=== PATIENT | female | born 1945 | race Caucasian/White ===

== ENCOUNTER 2018-11-27 12:02 | Outpatient (REF) | payer MEDICARE, OTHER, SELFPAY ==
[2018-11-27 14:02] LABS: ALT 21 U/L (12-78); AST 19 U/L (15-37); Albumin 3.7 g/dL (3.4-5.0); Alkaline Phosphatase 71 U/L (46-116); Anion Gap 11.2 mmol/L (3-11); BUN 22 mg/dL (7-18); Bilirubin, Total 0.7 mg/dL (0.2-1.0); CO2 25.8 mmol/L (21.0-32.0); CREATININE 0.86 mg/dL (0.55-1.02); Calculated LDL 137 mg/dL; Chloride 101 mmol/L (98-107); Cholesterol 218 mg/dL (50-200); Glucose 89 mg/dL (70-100); HDL Cholesterol 68 mg/dL (40-60); Potassium 3.2 mmol/L (3.5-5.1); Sodium 138 mmol/L (136-145); TSH (W/Ref FT4) 2.67 uIU/mL (0.36-3.74); Total Protein 6.6 g/dL (6.4-8.2); Triglyceride 65 mg/dL (30-150)
== END 2018-11-27 12:22 ==
LOC: NCHCN 12:02
PROVIDERS: PCP Nurse Practitioner; Visit Provider Nurse Practitioner
DX: E03.9 Hypothyroidism, unspecified (principal); I10 Essential (primary) hypertension; E78.5 Hyperlipidemia, unspecified
CPT/HCPCS: 80053; 80061; 83721; 84443

== ENCOUNTER 2020-10-18 09:14 | Outpatient (REF) | payer MEDICARE, OTHER, SELFPAY ==
[2020-10-18 19:54] LABS: ALT 19 U/L (14-59); AST 18 U/L (15-37); Albumin 3.9 g/dL (3.4-5.0); Alkaline Phosphatase 70 U/L (46-116); Anion Gap 11.7 mmol/L (3-11); BUN 15 mg/dL (7-18); Bilirubin, Total 0.7 mg/dL (0.2-1.0); CO2 27.3 mmol/L (21.0-32.0); CREATININE 0.9 mg/dL (0.55-1.02); Calcium 9.1 mg/dL (8.5-10.1); Calculated LDL 138 mg/dL (<100); Chloride 101 mmol/L (98-107); Cholesterol 218 mg/dL (<200); Glucose 105 mg/dL (74-106); HDL Cholesterol 67 mg/dL (40-60); Potassium 3.1 mmol/L (3.5-5.1); Sodium 140 mmol/L (136-145); TSH (W/Ref FT4) 2.94 uIU/mL (0.36-3.74); Total Protein 7.2 g/dL (6.4-8.2); Triglyceride 66 mg/dL (<150)
== END 2020-10-18 09:15 | disposition home or self-care (01) ==
LOC: NCHCN 09:14
PROVIDERS: PCP Nurse Practitioner; Visit Provider Nurse Practitioner
DX: E03.9 Hypothyroidism, unspecified (principal); E78.5 Hyperlipidemia, unspecified; I10 Essential (primary) hypertension; F41.8 Other specified anxiety disorders
CPT/HCPCS: 80053; 80061; 84443

== ENCOUNTER 2020-11-08 02:19 | Outpatient (CLI) | payer MEDICARE, OTHER, SELFPAY ==
--- NOTE | 2020-11-08 09:13 | DI.RAD_ITS ---
Exam(s) XR KNEE RT 3V AP,LAT,VASHTI XR KNEE LT 3V AP,LAT,VASHTI EXAM: XR KNEE RT 3V AP,LAT,VASHTI CLINICAL HISTORY: OA,M19.90,BAKERS CYST,M71.20. TECHNIQUE: 2D digital imaging was performed. COMPARISON: CR XR KNEE LT 3V AP,LAT,VASHTI from 11/08/2020 FINDINGS: BONES: No acute fracture is present. No bony destructive lesion is seen. There are severe degenerativ e changes of the medial femoral tibial joint spaces bilaterally , with a [id number]-rz-[id number] appearance. Th ere is prominent spurring from the medial femoral condyle and medial tibial plateau as well as sclero sis and varus angulation. Milder spurring is seen at the lateral femoral tibial joint and patellofem oral joint. JOINTS: No joint effusion is seen. SOFT TISSUE: Normal. IMPRESSION: Severe degenerative changes of the medial femoral tibial joint spaces of both knees. DATA REPOSITORY: RADIATION DOSE DELIVERED:
--- NOTE | 2020-11-08 09:14 | DI.RAD_ITS ---
Exam(s) XR KNEE RT 3V AP,LAT,VASHTI XR KNEE LT 3V AP,LAT,VASHTI EXAM: XR KNEE RT 3V AP,LAT,VASHTI CLINICAL HISTORY: OA,M19.90,BAKERS CYST,M71.20. TECHNIQUE: 2D digital imaging was performed. COMPARISON: CR XR KNEE LT 3V AP,LAT,VASHTI from 11/08/2020 FINDINGS: BONES: No acute fracture is present. No bony destructive lesion is seen. There are severe degenerativ e changes of the medial femoral tibial joint spaces bilaterally , with a kvsd-[id number] appearance. Th ere is prominent spurring from the medial femoral condyle and medial tibial plateau as well as sclero sis and varus angulation. Milder spurring is seen at the lateral femoral tibial joint and patellofem oral joint. JOINTS: No joint effusion is seen. SOFT TISSUE: Normal. IMPRESSION: Severe degenerative changes of the medial femoral tibial joint spaces of both knees. DATA REPOSITORY: RADIATION DOSE DELIVERED:
== END 2020-11-08 02:39 ==
PROVIDERS: PCP Nurse Practitioner; Visit Provider Nurse Practitioner
DX: M17.0 Bilateral primary osteoarthritis of knee (principal); M71.22 Synovial cyst of popliteal space [Baker], left knee; M71.21 Synovial cyst of popliteal space [Baker], right knee
CPT/HCPCS: 73562

== ENCOUNTER → 2020-12-02 09:43 | Outpatient (BNVA) | payer MEDICARE, OTHER, SELFPAY | PROVIDERS: PCP Nurse Practitioner; Referring Provider Nurse Practitioner; Visit Provider Student in an Organized Health Care Education/Training Program | DX: M17.12 Unilateral primary osteoarthritis, left knee (principal); M17.11 Unilateral primary osteoarthritis, right knee | CPT/HCPCS: 20610; J1040 ==

== ENCOUNTER 2021-01-19 00:23 | Outpatient (CLI) | payer MEDICARE, OTHER, SELFPAY ==
--- NOTE | 2021-01-19 | DI.DEXA_ITS ---
Exam(s) XR DEXA BONE DENSITY W/WO RYLEE EXAM: XR DEXA BONE DENSITY W/WO RYLEE CLINICAL HISTORY: DISORDER OF BONE DENSITY,M85.88 TECHNIQUE: Routine DEXA evaluation of the lumbar spine, hip, or forearm. COMPARISON: No exams were available for comparison FINDINGS: Performed on a Hologic unit. Lateral image: No compression fracture evident. Lumbar Spine total T-score: -1.5 Hip total T-score:-2.2 Independent reading at the level of the femoral neck yields at T-score of -2.5. Forearm total T-score: -1.3 IMPRESSION: Bone mineral density measures in the osteoporosis range. Fracture risk is high. Note: Any spine fracture indicates 5x risk for subsequent spine fracture and 2x risk for subsequent h ip fracture. World Health Organization criteria for BMD interpretation classify patients: Normal...... T- Score at or above -1.0 Osteopenic... T- Score between -1.0 and -2.5 Osteoporosis... T-Score at or below -2.5
--- NOTE | 2021-01-19 | DI.MAMMO_ITS ---
Exam(s) MAMMO SCREENING EXAM: MAMMO SCREENING CLINICAL HISTORY: SCREENING, Z12.39. TECHNIQUE: Bilateral full field digital CC and MLO mammographic images were obtained with 3D tomosyn thesis and utilizing computer aided detection (CAD). COMPARISON: Prior mammograms dating back to 2010, the most recent being July 2017. FINDINGS: Asymmetric densities in the right breast are unchanged from prior studies. Microcalcification group in the right breast is also unchanged from 2018. There are no new spiculated masses nor malignant appearing microcalcification groups. There is no significant architectural distortion nor skin thickening-retraction. IMPRESSION: Stable benign findings. No radiographic evidence of malignancy. BI-RADS Category 2 - Benign Findings Breast Density - Category B - Scattered areas of fibroglandular density Breast density Category C or D implies that the patient has dense breast tissue. Dense breast tissue can make it harder to find cancer on a mammogram. Dense breast tissue is also associated with an incr eased risk of breast cancer. This information about the result of the mammogram report was provided to the patient to raise their awareness. Use this report when you speak with the patient about their risks for breast cancer, which includes their family history. At that time, you may recommend additional screening tests (Ultrasoun d or MRI) as these tests may add significant information. A negative radiographic report should not delay biopsy if a dominant or clinically suspicious mass is present. Up to ten percent of cancers are not identified on mammography. A negative report may reinforce clinical impression. Adenosis and dense breasts may obscure an underlying neoplasm. False positive reports average 6 to 10%. Patient will receive a letter notifying them of these results.
== END 2021-01-19 00:43 ==
PROVIDERS: PCP Nurse Practitioner; Visit Provider Nurse Practitioner
DX: M85.89 Other specified disorders of bone density and structure, multiple sites (principal); Z13.820 Encounter for screening for osteoporosis; Z12.31 Encounter for screening mammogram for malignant neoplasm of breast
CPT/HCPCS: 77063; 77067; 77080

== ENCOUNTER 2021-08-14 13:23 | Outpatient (CLI) | payer MEDICARE, OTHER, SELFPAY ==
--- NOTE | 2021-08-14 11:36 | DI.RAD_ITS ---
Exam(s) XR STANDING ALIGNMENT EXAM: XR STANDING ALIGNMENT CLINICAL HISTORY: TKA planning. TECHNIQUE: 2D digital imaging was performed. Standing AP views were performed from the pelvis throu gh the ankles. COMPARISON: No exams were available for comparison FINDINGS: BONES: No acute fracture is present. No bony destructive lesion is seen. Minimal leg length discrep zion with the left femoral head projecting a few millimeters superior to the right. JOINTS: Knees: Severe degenerative changes of the medial femoral tibial joint spaces of both knees wi th severe joint space narrowing and prominent periarticular spurring. Mild varus angulation. The ankle and hip joints are unremarkable. SOFT TISSUE: Normal. IMPRESSION: Severe degenerative changes of the medial femoral tibial joint spaces of both knees. Minimal leg cynthia gth discrepancy. DATA REPOSITORY: RADIATION DOSE DELIVERED:
== END 2021-08-14 13:24 | disposition home or self-care (01) ==
LOC: DIORS 13:23
PROVIDERS: PCP Nurse Practitioner; Referring Provider Nurse Practitioner; Visit Provider Student in an Organized Health Care Education/Training Program
DX: M17.12 Unilateral primary osteoarthritis, left knee (principal); M17.11 Unilateral primary osteoarthritis, right knee
CPT/HCPCS: 77073

== ENCOUNTER 2021-08-28 01:58 | Outpatient (CLI) | payer MEDICARE, OTHER, SELFPAY | END 2021-08-28 01:59 | disposition home or self-care (01) | LOC: LBO 01:58 | PROVIDERS: PCP Nurse Practitioner; Visit Provider Student in an Organized Health Care Education/Training Program ==

== ENCOUNTER 2021-08-28 02:25 | Outpatient (CLI) | payer MEDICARE, OTHER, SELFPAY ==
[2021-08-28 13:05] LABS: HCT 44.1 % (36.0-46.0); HGB 14.5 g/dL (11.2-15.7); MCH 30.3 pg (27.0-33.0); MCHC 32.9 % (32.0-36.0); MCV 92 fL (80-95); MPV 11.8 fL (8.0-11.0); Platelet Count 202 10^3/uL (130-400); RBC 4.78 10^6/uL (3.93-5.22); RDW 13.7 % (11.7-14.6); RDW-SD 46.8 fL; WBC 8.34 10^3/uL (4.4-10.8)
[2021-08-28 13:39] LABS: Anion Gap 7.9 mmol/L (3-11); BUN 25 mg/dL (7-18); CO2 31.1 mmol/L (21.0-32.0); CREATININE 1.1 mg/dL (0.55-1.02); Calcium 9.5 mg/dL (8.5-10.1); Chloride 102 mmol/L (98-107); Estimated GFR 48.42 (mL/min/1.73m2); Glucose 97 mg/dL (74-106); Potassium 3.4 mmol/L (3.5-5.1); Sodium 141 mmol/L (136-145)
[2021-08-28 14:27] LABS: Source Nasal/Nares
[2021-08-28 16:40] LABS: COVID-19 PCR Negative (Negative)
== END 2021-08-28 02:26 | disposition home or self-care (01) ==
LOC: LBO 02:25
PROVIDERS: PCP Nurse Practitioner; Visit Provider Student in an Organized Health Care Education/Training Program
DX: M25.562 Pain in left knee (principal); M17.12 Unilateral primary osteoarthritis, left knee; Z20.822 Contact with and (suspected) exposure to COVID-19; Z01.818 Encounter for other preprocedural examination; Z01.812 Encounter for preprocedural laboratory examination
CPT/HCPCS: 36415; 80048; 85027; 87635; U0005

== ENCOUNTER 2021-08-30 05:55 | Day surgery (SDC) | payer MEDICARE, OTHER, SELFPAY ==
[2021-08-30] VITALS (10 sets, daily range): BP systolic 81–115; BP diastolic 30–71; PULSE 60–75; RESP 13–19; TEMP 36.2–36.7; O2SAT 94–98; BMI 30.8
[2021-08-30] MEDS: Acetaminophen 500 MG TAB 1000 MG PO (06:32)
[2021-08-30] MEDS: Gabapentin 300 MG CAP PO (06:33)
[2021-08-30] MEDS: Celecoxib 200 MG CAP 400 MG PO (06:33)
[2021-08-30] MEDS: Lactated Ringers 1,000 ML 80 ML IV (06:40)
--- NOTE | 2021-08-30 06:47 | W.ANESPRE ---
General Info Date of Service Date Performed: 08/30/21 Height: 5 ft 3 in Weight: 78.9 kg Body Mass Index (BMI): 30.8 Surgical Procedure: Operation Date: 08/30/21 07:40 Proposed Procedure Side Surgeon p Knee Total Arthroplasty Left Brendan Yin MD s Knee Manipulation of Knee Right Brendan Yin MD Meds Allergies and Home Medications Allergies Allergy/AdvReac Type Severity Reaction Status Date / Time No Known Allergies Allergy Verified 08/30/21 06:05 Home Medication Medication Instructions Recorded alprazolam 0.5 mg disintegrating 0.5 mg PO HS 09/17/16 tablet citalopram 40 mg tablet (Celexa) 40 mg PO DAILY tab-cap 09/17/16 levothyroxine 25 mcg tablet 50 mcg PO DAILY tab-cap 09/17/16 triamterene 37.5 1 tab-cap PO DAILY tab-cap 09/17/16 mg-hydrochlorothiazide 25 mg capsule rosuvastatin 20 mg tablet 20 mg PO DAILY 08/28/21 naproxen sodium 220 mg capsule 660 mg PO 08/30/21 (Aleve) Current Visit Medications: Current Medications Generic Name Dose Route Start Last Admin Trade Name Freq PRN Reason Stop Dose Admin Acetaminophen 1,000 mg 08/30/21 06:00 08/30/21 06:32 Acetaminophen 500 Mg Tab PO 1,000 mg PREOP THEODORE Administration Celecoxib 400 mg 08/30/21 06:00 08/30/21 06:33 Celecoxib 200 Mg Cap PO 400 mg PREOP THEODORE Administration Gabapentin 300 mg 08/30/21 06:00 08/30/21 06:33 Gabapentin 300 Mg Cap PO 300 mg PREOP THEODORE Administration Tranexamic Acid 1,000 mg/ 60 mls @ 360 mls/hr 08/30/21 06:00 Sodium Chloride IVPB 08/30/21 23:59 PREOP THEODORE Tranexamic Acid 1,000 mg/ 60 mls @ 360 mls/hr 08/30/21 06:00 Sodium Chloride IVPB 08/30/21 23:59 DIRECTED THEODORE Ringer's Solution 1,000 mls @ 80 mls/hr 08/30/21 06:00 IV 09/28/21 23:59 INFUSION THEODORE Cefazolin Sodium/Dextrose 2 gm in 50 mls @ 100 mls/hr 08/30/21 06:00 Ancef Duplex IVPB 09/28/21 23:59 PREOP THEODORE IV Miscellaneous Supplies 1 each 08/30/21 06:00 Iv Access IV 09/28/21 23:59 DIRECTED THEODORE Sodium Chloride 0 ml 08/30/21 06:00 Normal Saline Flush 10 Ml Syr IV 09/28/21 23:59 PRN PRN Sodium Chloride 0 ml 08/30/21 06:00 Normal Saline 10 Ml Vial IJ 09/28/21 23:59 DIRECTED PRN Sterile Water 0 ml 08/30/21 06:00 Water,Injection,Sterile 10 Ml Vial IJ 09/28/21 23:59 DIRECTED PRN PFSH Active Problems Active Problems: Problem Status Onset Code Osteoarthritis of left knee M17.12 Osteoarthritis of right knee M17.11 Medical History Medical History Depression with anxiety HTN (hypertension) Hypothyroidism Surgical History Surgical History Arthroplasty of knee R knee scope reported by patient Colonoscopy - MAC (10/01/16) Tobacco Smoking/Tobacco Use Status: Former Tobacco Use Alcohol Alcohol Intake: current Alcohol intake frequency: a few times a week Alcohol type: wine Substance Use Substance use: Never Substance use type: does not use Details: alcohol: t-5 Vital Signs and Lab Results Vital Signs Most Recent Vital Signs in EMR: Most Recent Vital Signs Temp Pulse Resp BP Pulse Ox 36.5 C 75 16 115/71 98 08/30/21 06:12 08/30/21 06:12 08/30/21 06:12 08/30/21 06:12 08/30/21 06:12 Lab Results Blood Type / Crossmatch: No Data to Display Complete Blood Count: White Blood Count 8.34 10^3/uL (4.4-10.8) 08/28/21 12:48 08/28/21 Red Blood Count 4.78 10^6/uL (3.93-5.22) 08/28/21 12:48 08/28/21 Hemoglobin 14.5 g/dL (11.2-15.7) 08/28/21 12:48 08/28/21 Hematocrit 44.1 % (36.0-46.0) 08/28/21 12:48 08/28/21 Platelet Count 202 10^3/uL (130-400) 08/28/21 12:48 08/28/21 Complete Metabolic Panel: Sodium Level 141 mmol/L (136-145) 08/28/21 12:48 08/28/21 Potassium Level 3.4 mmol/L (3.5-5.1) L 08/28/21 12:48 08/28/21 Chloride Level 102 mmol/L (98-107) 08/28/21 12:48 08/28/21 Carbon Dioxide Level 31.1 mmol/L (21.0-32.0) 08/28/21 12:48 08/28/21 Blood Urea Nitrogen 25 mg/dL (7-18) H 08/28/21 12:48 08/28/21 Creatinine 1.1 mg/dL (0.55-1.02) H 08/28/21 12:48 08/28/21 Estimated GFR/1.73 m2 48.42 (mL/min/1.73m2) 08/28/21 12:48 08/28/21 Calcium Level 9.5 mg/dL (8.5-10.1) 08/28/21 12:48 08/28/21 Glucose Level 97 mg/dL (74-106) 08/28/21 12:48 08/28/21 Liver Function Panel: No Data to Display Coagulation Panel: No Data to Display Cardiac Panel: No Data to Display Arterial Blood Gas: No Data to Display Venous Blood Gas: No Data to Display Pancreas Panel: No Data to Display Thyroid Panel: No Data to Display Infectious Disease: Coronavirus (COVID-19)(PCR) Negative (Negative) 08/28/21 12:59 08/28/21 Coronavirus 2019 Source Nasal/Nares 08/28/21 12:59 08/28/21 Blood Cultures: No Data to Display Toxicology Panel: No Data to Display Anesthesia Assessment and Plan Anesthesia History Personal History: No History of Anesthesia Complications Family History: No Family History of Anesthesia Complications Exercise Tolerance Exercise Tolerance: Metabolic Equivalents>4 Pertinent Negatives Pertinent Negatives: No Symptoms of GERD, No Major Cardiovascular Symptoms or Complaints and No Major Pulmonary Symptoms or Complaints Cardiac & Pulmonary Exam Cardiac Exam: Normal S1/S2 Heart Sounds Pulmonary Exam: Clear Bilateral Breath Sounds Implantable Cardiac Device Does patient have a Pacemaker or an ICD?: No Airway Exam Known Difficult Airway: No Mallampati Class: 2 Mouth Opening: Narrow (< 3cm) Thyromental Distance: Greater than 3 cm Neck Range of Motion: Full ROM Neck Circumference: Normal Teeth Condition: Normal Dentition ASA Classification ASA Score: ASA 2 Emergency Case?: No NPO Status NPO Status: NPO Clears >2 hours, Solids >8 hours Anesthesia Plan Resuscitation Status: Full Code Anesthesia Technique: Spinal Anesthesia Airway Planned: Natural Airway Pain Management: Surgeon and patient request nerve block Monitors Used: Standard Monitors
--- NOTE | 2021-08-30 07:13 | DSE_ITS ---
DS: Diagnosis Discharge Diagnosis (1) Osteoarthritis of right knee: Status: Chronic (2) Osteoarthritis of left knee: Status: Chronic Discharge Plan Disposition Patient Disposition: HOME Condition: Good Discharge Details Reason For Visit: Left knee DJD; Right knee DJD Attending Provider: Brendan Yin Primary Care Provider: Chary Peñaloza Home Meds and New Rx's Prescriptions: New celecoxib [Celebrex] 200 mg capsule 200 mg PO BID Qty: 30 0RF aspirin 81 mg tablet,delayed release (DR/EC) 81 mg PO BID 30 Days Qty: 60 0RF acetaminophen 500 mg tablet 500 mg PO Q6H PRN (Reason: pain) Qty: 60 2RF pantoprazole 40 mg tablet,delayed release (DR/EC) 40 mg PO DAILY 30 Days Qty: 30 0RF docusate sodium [Colace] 100 mg capsule 100 mg PO BID Qty: 30 0RF gabapentin 300 mg capsule 300 mg PO QHS Qty: 14 0RF Rx Instructions: Take one tablet at bedtime oxycodone 5 mg tablet 5 mg PO Q4H PRN (Reason: severe post-operative pain) Qty: 18 0RF Rx Instructions: Take one tablet up to every 4 hours as needed for severe pain Continued alprazolam 0.5 MG tablet,disintegrating 0.5 mg PO HS PRN0RF citalopram [Celexa] 40 MG tablet 40 mg PO DAILY 0RF triamterene-hydrochlorothiazid 1 EACH capsule 1 tab-cap PO DAILY 0RF levothyroxine 25 MCG tablet 50 mcg PO DAILY 0RF rosuvastatin 20 mg tablet 20 mg PO DAILY 0RF Discontinued naproxen sodium [Aleve] 220 mg Capsule 660 mg PO 0RF Discharge Instructions Additional Instructions: Total Knee Discharge Instructions Activity: The most important activity is to walk. You should try to take short walks a few times a day. It is important that when resting you work on keeping the knee straight. Avoid putting a pillow behind the knee as this will encourage flexion. Work on range of motion exercises as provided by Physical Therapy. If you have the [employer] bike coming, this will be your primary tool for exer cise after the knee replacement. You should use it and follow the directions for the knee. Utilize the other exercises sparingly based on your symptoms. - Start outpatient physical therapy within 2 weeks. - You should wear the JOE hose on both legs for 2 weeks. You may remove these at night. You may also use any compression sock in place of the JOE hose. - Utilize [employer] to review exercises, see videos on exercises and obtain basic information pertaining to your surgery and your recovery. - Following your right knee injection you may have increased discomfort for 2-3 days. Apply ice and may remove band aid after a day. Dressing: Remove the Ulises wrap by 2 days after your surgery and put on the JOE stocking given to you from the hospital. Keep the surgical dressing (underneath the ULISES wrap) in place for at least one week. After the first week it may be removed and replaced with light gauze and tape or nothing. The wound and dressing may get wet after 3 days but avoid soaking the dressing or otherwise it will need to be changed. Many people prefer covering the dressing with cling wrap (saran wrap) to minimize it from getting soaked. If it gets wet, just pat dry. If it starts to peel off then it will need to be changed. Medications: - You should take Tylenol and anti-inflammatory Celebrex as your primary pain control medications. If the Celebrex is too expensive or not covered, please call the office for another alternative (Advil/Ibuprofen or Naproxen/Aleve) - You have been prescribed a stronger pain medication Oxycodone for breakthrough pain, take as needed as prescribed. - You have also been prescribed a stomach acid reduction agent Pantoprozole to help reduce stomach acid and reflux. - You have been prescribed Gabapentin to take at night for restlessness and nerve pain. - You will be taking Aspirin 81mg twice a day for DVT prevention unless instructed otherwise. - If you have constipation you should take Colace (which has been prescribed) or Miralax (which is available for purchase [id number]). It takes most people 3-4 days to have a bowel movement. Follow-up: 2 weeks If you have any acute concerns or questions, please do not hesitate to contact the office at [phone]. You may contact Dr. Yin with any questions after hours through the hospital at [phone] or on his cell phone at [phone]. Referrals: Brendan Yin MD [ [facility] STAFF PHYSICIAN] - Equipment/Supplies: Walker Activity:: Elevate Remove Dressings/Wound Care:: Do Not Remove Shower/Bathe:: Cover Diet:: As Tolerated Discharge Orders Discharge Orders: Discharge Order (Routine); Ordered 08/30/21 Ordered By: Brendan Yin DS: Summary Time Spent with Patient providing and/or coordinating discharge services: Less than 30 minutes Status at Discharge Functional status at discharge: uses cane/walker Overall status at discharge: patient is progressing back to baseline Mental Status: mental status grossly normal Speech and Movement: speech and movement normal Mood: congruent mood Affect: normal affect Exam Psych Mental Status: mental status grossly normal Speech and Movement: speech and movement normal Mood: congruent mood Affect: normal affect DS: Data Vitals/I&O Vitals and I&O: Vital Signs Temperature 97.7 F 08/30/21 06:12 Pulse 75 08/30/21 06:12 Pulse Rhythm Regular 08/30/21 06:12 Respiratory Rate 16 08/30/21 06:12 Respiratory Depth Normal 08/30/21 06:12 Blood Pressure 115/71 08/30/21 06:12 Pulse Oximetry 98 08/30/21 06:12 Oxygen Delivery Method Room Air 08/30/21 06:12 Oxygen Flow Rate 0 08/30/21 06:12 Pain Level 4 08/30/21 06:12 Intake & Output 08/29/21 08/29/21 08/30/21 11:59 23:59 11:59 Weight 176 lb 7.01 oz 173 lb 15.115 oz PFSH All Active Problems Osteoarthritis of left knee (Chronic) injection 12/02/2020 Osteoarthritis of right knee (Chronic) Injection 12/02/2020 Medical History Depression with anxiety HTN (hypertension) Hypothyroidism Surgical History Arthroplasty of knee R knee scope reported by patient Colonoscopy - MAC (10/01/16) Family History Maternal Aunt Colon cancer Maternal Aunt Colon cancer Social History Smoking/Tobacco Use Status: Former Tobacco Use Quit Date: 04/29/96 Smoking risk assessment performed?: Yes Alcohol Intake: current Alcohol Intake frequency: a few times a week Alcohol type: wine Drug use: Never Substance use type: does not use Details: alcohol: t-5 Do you feel safe at home: Yes Do you feel safe in your relationship?: Yes
[2021-08-30] MEDS: ceFAZolin 2 GM/50 ML BAG IVPB (07:30)
[2021-08-30] MEDS: methylPREDNISolone ACETATE 80 MG/ML VIAL (07:44)
[2021-08-30] MEDS: Bupivacaine 0.25% Pres-Free 30 ML VIAL (07:44)
--- NOTE | 2021-08-30 08:45 | W.ANESNERVE ---
Nerve Block Single Injection Procedure Date and Time Date Performed: 08/30/21 Procedure Start: 07:15 Location Where Procedure Performed Procedure Location: Day Surgery Unit Reason Performed: Postoperative Analgesia Requesting Provider: Brendan Yin Timeout Performed Timeout Performed: Yes Monitoring Used ECG, Blood Pressure and SpO2 Sterility Sterility: Hand Hygiene, Surgical Cap, Surgical Mask, Sterile Gloves, Sterile Drape/Sheet and Chlorhexidine Sedation Given During Procedure Sedation Given (Indicate Dose Given): No Sedation given Patient Mental Status Patient Mental Status: Awake Nerve Block 1st Nerve Block: Laterality: Left Block Type: Adductor Canal Needle / Catheter Used: 100mm SonoPlex II Local Anesthetic Bolus (Indicate Dose Given): Lidocaine used for local infiltration of skin, Injected in 3-5ml increments after negative blood aspiration and Bupivacaine 0.25% Dose:: 20 mL Additives (Indicate Dose Given): None Ultrasound: Sterile probe cover and gel used Ultrasound Image Saved?: Yes Nerve Stimulator: Not Used Paresthesia: None Procedure Tolerated: No Complications and Patient tolerated well Procedure Outcome: Successful Performed By: Ivette Samaniego Supervised By: William Zayas
--- NOTE | 2021-08-30 09:42 | ROE_ITS ---
Date of service: 08/30/21 Time of Service: 09:30 Operative Note Operative Note DATE OF PROCEDURE: 08/30/21 PRE-OP DIAGNOSIS: Bilateral Knee Osteoarthritis POST-OP DIAGNOSIS: same PROCEDURE: Left Total Knee Replacement and Right Knee Injection SURGEON: Brendan Yin BOILERMAKER MECHANIC: Marce Duff ANESTHESIA TYPE: Spinal Refer to Anesthesia Record ESTIMATED BLOOD LOSS: 100 PATHOLOGY: none sent TOURNIQUET TIME: 27 COMPLICATIONS: None Patient was transported to: PACU Patient's condition: stable Implants: 1. Depuy Attune Cruciate Retaining Femoral Component, Size 6 2. Depuy Attune Rotating Platform Tibial Component, Size 5 3. Depuy Attune 6x8mm CR,RP Poly 4. Depuy Attune Patellar Component, Size 38 Indications: I have seen aPyal in clinic for symptoms of knee arthritis, confirmed with radiographic findings. She has exhausted nonoperative methods and was having significant limitations in daily function and desired better function and less pain. I discussed the technical details of a knee replacement. I explained the risks of the procedure to include, but not limited to, bleeding, infection, pain, stiffness, fracture, damage to nerves and vessels, damage to muscles and tendons, loosening, need for repeat procedure, blood clot and cardiopulmonary demise. Despite these risks, Payal elected to proceed. Findings: There was significant signs of arthritis throughout the knee involving all 3 compartments but with large osteophytes medially. Procedure Description: Payal was greeted in the preoperative holding area where the correct side was identified and marked. The consent was reviewed with the patient and signed. The history and physical was updated. All questions were answered. Preoperative mediacations were administered: Acetaminophen 1000mg, Celebrex 400mg, and Gabapentin 300mg. An adductor canal block was then administered by the anesthesia team in the PACU. Payal was taken back to the operating room. A spinal anesthestic was then administered. The patient was placed into the supine position on the operating room table. A nonsterile tourniquet was placed high onto the leg but only used for cementing. Posts were placed for positioning during the procedure. All bony prominences were well padded. Prophylactic antibiotics in the form of Cefazolin were administered. 1g of Tranxemic Acid was given intravenously within 30 minutes of incision. A timeout to confirm correct identity, side and site, procedure, allergies, anesthesia, and medical concerns was performed. The right knee was addressed first by identifying the injection location superolaterally. This was prepped with alcohol. Then the knee was entered and 0.25% bupivacaine (5cc) along with 80mg of Depo-Medrol was injected without difficulty. This was dressed with a bandaid. The left leg was then prepped with Chloraprep and draped in a standard fashion with impervious stockinette and extremity drape. A second prep with Chloraprep was performed prior to placing Ioband. With the knee in some flexion, a midline incision was made overlying the knee. Full thickness skin flaps were raised once the extensor mechanism was encountered. These were raised medially and laterally. Any bleeding was controlled with electrocautery. Once the extensor mechanism was fully exposed, a medial parapatellar arthrotomy was performed in a flexed position. All bleeding from the arthrotomy and the geniculate arteries was coagulated. A medial subperiosteal peel was performed with electrocautery to the midcoronal plane. Due to the significant varus deformity the entire medial tibial plateau was exposed. The fat pad was removed while keeping the patellar tendon protected. The anterior distal femur synovium was removed for later visualization. The ACL and PCL were resected and the anterior horn of the lateral meniscus was transected. The knee was then flexed with the patella everted. Large osteophytes from the tibia were removed. Large osteophytes from the femur were removed. Using a step drill, and based on preoperative templating, the femoral canal was entered. This was done with a step drill without any difficulty. The intramedullary distal femoral cut guide was inserted, set to a 6 degree valgus cut and 8mm cut thickness. The distal femoral cut guide was then held in position and pinned. With the soft tissues protected, the distal cut was performed. This was passed over a few times to ensure a planar cut. I then turned attention to the tibia. The extramedullary guide was placed onto the leg. The distal aspect was slid medial to adjust for position of center of ankle and stay in line with shaft of the tibia. Approximately 3-5 degrees of posterior slope was kept in the proximal cutting guide. The center of the guide was aligned with the PCL. The stylus was used to assess cut thickness. The medial side, most involved side, was set for a 2mm cut. This was then held in position and pinned into place with 2 additional pins and a cross pin for stability. The medial and lateral collateral ligaments were protected and the cut was performed. With this completed, it was assessed and noted to be of appropriate dimensions. The guide was removed. A spacer block was inserted and the knee was brought into extension. The 6mm spacer block provided full extension, without hyperextension and with stability of both the medial and lateral collateral ligaments was assessed. The pins from the femur and the tibia were then removed. The distal femur was then sized. The anterior stylus was placed onto the lateral ridge of the anterior femur. This indicated a size 6 femur. The external rotation of the guide was adjusted to 3 degrees to match the epicondylar axis, perpendicular to [place]?s line. The 4-in-1 cutting guide was the placed. The posterior medial femur cut was evaluated and appeared of good thickness. The spacer block was inserted underneath the cutting guide and stability was confirmed in 90 degrees of flexion. An marie wing was used to confirm appropriate position of the anterior cut to avoid notching. This cutting guide was ensured to be flush on the cut surface and then pinned into place with headed pins. While protecting the soft tissues, quad tendon, and collateral ligaments, the anterior and posterior cuts were performed with a saw. The central two pins were removed and the posterior and anterior chamfers were cut next. The notch-cutting guide was placed. This was pinned to lateralize the femoral component as much as possible while keeping it flush on the cut surface. This was then pinned into position. A reciprocating saw was used to make the small notch cut. A trial CR femoral component was then inserted, impacted down to the cut surfaces, and the lug holes were drilled. A provisional trial tibial component was placed and the knee was brought through range of motion. The polyethylene was trialed until there was good flexion and extension with excellent stability to the medial and lateral collaterals. The patella was tracking without thumbs. The tibial cut surface was fully exposed. The medial and lateral menisci were removed. The tibia was then sized as a 5. The tibia had been previously marked during trialing to correspond to the center of the tibial component to help with rotation. The trial was aligned to this ab, approximately rotated to the medial 1/3rd of the tibial tubercle. The trial was pinned into place. The tibia was prepared with a reamer and a keel punch. The knee was then brought into extension and the patella was measured as 24mm. Using the patellar clamp and cut guide, this was resected to a flat surface with at least 13mm of thickness remaining. The size 38 patella fit the best. This was oriented and then clamped into position. The lugs were drilled. The trial components were removed. The final components, except for the polyethylene were opened on the back table. The periosteal and capsular tissues, especially posteriorly, around the knee were then systematically injected with a periarticular cocktail consisting of 246mg of Ropivacaine, 0.5mg of Epinephrine, 0.08mg of Clonidine, and 30mg of Ketorolac, diluted to 100cc.. The tourniquet was then inflated to 275mmHg. The knee was thoroughly irrigated with a pulse lavage and dried. On the back table, with the implants opened, the cement was mixed. 2 batches of medium viscosity cement were prepared with vacuum assistance. After the cement was ready it was placed on to the back side of the tibial component. A small amount was placed onto the posterior flange of the femur. Cement was manual pressurized and impregnated into the cut surface of the tibia. The tibial component was then inserted into the cut surface and impacted into position. Excess cement was removed and the component was reimpacted. Again, excess cement was removed and our attention was then turned to the femur. The femoral cut surface was once again dried and cement was manually impacted into the cut surface. The femoral component was lined with the lug holes and impacted. Excess cement was removed. It was ensured to be down against the cut surface. The trial polyethylene was then inserted and the leg was brought out into full extension for the duration of the cement curing process, approximately 18min. Cement was lastly manually impacted into the cut surface of the patella and the patellar button was clamped into position and held. During this process attention was turned to the gutters of the knee and for all interfaces for any excess cement. While the cement was hardening, the knee was irrigated with Surgiphor Betadine solution. It was allowed to sit in the knee for 3 minutes and then it was thoroughly irrigated with saline. After the cement had finally cured, approximately 18min, the clamp was removed from the patella and the knee was taken through range of motion. A size 8mm polyethylene component provided the best range of motion and stability with less than 2mm gapping with medial and lateral stress and full extension without significant hyperextension. The patella was tracking with a no-thumbs technique. The trial poly was removed and once again the knee was checked for any loose, excess, or errant cement. The poly component was then inserted into position after cleaning and drying the tibial tray. The capsule was then reapproximated with a No. 1 Vicryl at multiple locations. The capsule was finally closed with a No. 2 Stratafix, barbed suture. The tourniquet was then released and the arthrotomy appeared watertight without significant bleeding. The second dosing of 1g TXA was started. Deep tissues were then reapproximated with 0 Vicryl and 2-0 Vicryl. The skin was closed with a running 3-0 Monocryl in a subcuticular fashion. This was reinforced with skin glue. A Mepilex silver dressing was applied along with a [id number] JAYDEN wrap. A CryoCuff was applied. Payal was transferred to the hospital bed without difficulty an suffering no apparent complication. She has a good prognosis. Physical therapy will start today and without restrictions, weight-bearing as tolerated. Aspirin 81mg BID will be used for DVT prophylaxis.
--- NOTE | 2021-08-30 10:10 | W.ANESPOSTOP ---
Postoperative Evaluation Date, Time and Location Date Performed: 08/30/21 Time Performed: 10:10 Patient Location: PACU Vital Signs Most Recent Imported Vital Signs: Most Recent Vital Signs Temp Pulse Resp BP Pulse Ox 36.3 C L 60 13 100/34 L 97 08/30/21 09:58 08/30/21 09:58 08/30/21 09:58 08/30/21 09:58 08/30/21 09:58 Pain Score Most Recent Pain Score: Most Recent Pain Score Pain Level 0 08/30/21 09:58 Assessment Mental Status: Awake (Alert & Oriented to Patient Baseline) Airway and Respiratory Function: Patent airway with normal (patient baseline) respiratory exam Cardiovascular Function: Hemodynamically Stable Hydration Status: Adequately Hydrated Nausea & Vomiting: No Nausea or Vomiting Pain: Pt. Denies Any Pain Peripheral Nerve Block: Regional nerve block not resolved at time of post operative discharge
--- NOTE | 2021-08-30 11:22 | IN_ITS ---
Date of service: 08/30/21 Time of Service: 11:28 PT Notes Visit Reasons: Left knee DJD; Right knee DJD Physical Therapy Day Surgery Initial Evaluation Date: 08/30/2021 Referring Doctor: TYREL Sandhu PT Orders: PT CONSULT: S/P Ortho surgery Precautions: WBAT on L LE with AD. Patient Profile/Admitting Diagnosis: Payal is a 76-year-old female with degenerative joint disease of the left knee and the right knee and is status post left total knee arthroplasty and right i ntra-articular injection on postoperative day 0. PMHX: Medical History? Depression with anxiety HTN (hypertension) Hypothyroidism Surgical History?(Updated 02/12/18 @ 14:33 by [employer] [place]) Arthroplasty of knee Colonoscopy - MAC (10/01/16) Social History/Home Situation: Lives alone in a private home but states that he is headed to her son's house which has 4 steps and 1 rail to enter. Equipment Owned/DME: None Subjective: Agreeable to PT consult. Reports mild ache in the front of her left thigh and not in the L knee that felt a little better after ambulation activity Objective: General Observation: Supine in bed. JAYDEN wraps to left LE. Cryocuff to left knee left knee. TEDS on right leg. Mental Status: Alert and oriented x4 Pain: -05/2009 in the left thigh ROM: Right Lower Extremity: Hip flexion WFL. Hip abduction WFL. Knee flexion WFL. Ankle dorsiflexion WFL. Ankle plantarflexion WFL. Left Lower Extremity: Hip flexion WFL. Hip abduction WFL. Knee flexion 10degrees to 100 degrees. Knee extension -10 degrees. Ankle dorsiflexion WFL. Ankle plantarflexion WFL. Strength: Right Lower Extremity: Hip flexors 5/5. Hip abductors 5/5. Knee flexors 5/5. Knee extensors 5/5. Ankle dorsiflexors 4/5. Ankle plantarflexors 5/5. Left Lower Extremity:Hip flexors 4/5. Hip abductors 4/5. Knee flexors 3-/5. Knee extensors 3-/5. Ankle dorsiflexors 4/5. Ankle plantarflexors 5/5. Sensation: Intact as to pain and light pressure in bilateral lower extremities Bed Mobility/Transfers: Supine to sit standby assist Sit to stand contact-guard assist Stand to sit standby assist Bed to chair standby assist Gait: Guided patient with level surface ambulation using front-wheeled walker with standby assist, step through gait pattern. Denies increase in pain level, chest pain, headache, and lightheadedness throughout ambulation activity. No loss of balance. No shortness of breath. Balance: Static Sitting: Normal Dynamic Sitting: Normal Static Standing: Fair Dynamic Standing: Fair Special Tests: Mobility Limitations Standardized Measure [facility] 6 clicks Basic Mobility Inpatient Short Form: Raw Score: 23 CMS Score: 11% deficit Informed Consent/Education: Patient instructed in purpose of PT consult. Education and training on initial set of exercises that can be done at home have been completed with patient with reference to the [employer] james. Assessment: Payal requires the use of a front wheel walker for all mobility ADL performance to maximize independence and reduce fall. Patient presents with clinical signs and symptoms consistent with current/admitting diagnoses that have resulted to mobility limitations, gait instability, generalized weakness, and impairment of motor control as demonstrated by the following impairment level findings: 1. Decreased strength to left knee major muscle groups 2. Impaired standing balance 3. Limitation of joint range of motion in left knee Impairments are contributing to the following functional limitations: 1. Inability to safely ambulate without assistive device 2. Increase completion time for mobility ADL performance 3. Increased fall risk Patient is assessed as a 75179 moderate complexity based on the following: History: 76-year-old female with impairment level findings, functional l imitations, and past medical history as indicated above Examination: Demonstrable impairment in strength, balance, and mobility level with underlying impairments and functional limitations as documented above Presentation: Evolving Decision Makin moderate complexity Goals: N/A. PT evaluation and 1-2 treatment sessions only for functional mobility training using recommended AD and for HEP instruction. Plan of Care/Treatment Plan: N/A. PT evaluation and 1-2 treatment session only for functional mobility training using recommended AD and for HEP instruction. DISCHARGE RECOMMENDATIONS: [] Home with no services [] [] Home with services [specify] [X] Home with outpatient PT. Home when medically cleared by orthopedic surgeon. Will benefit from outpatient PT services in order to facilitate return to independent ADL performance and independent community ambulation without an assistive device. [] SNF for continued rehabilitation [] [] [facility] [] [] SNF versus LTC based on ability to participate and progress [] TREATMENT CODE/TIME: 971 2 x 20 minutes, 74596 x 26 minutes beginning at 11:22 AM. Thank you for the opportunity to participate in the care of this patient. Melissa Medrano PT, DPT, CLT [facility] [place], [place]
== END 2021-08-30 13:30 | disposition home or self-care (01) ==
PROVIDERS: PCP Nurse Practitioner Family; Visit Provider Student in an Organized Health Care Education/Training Program
PROC: (CPT 27447; principal; 2021-08-30 07:30)
PROC: (CPT 20610; 2021-08-30 07:30)
DX: M17.0 Bilateral primary osteoarthritis of knee (principal); I10 Essential (primary) hypertension; E03.9 Hypothyroidism, unspecified; F32.A Depression, unspecified
CPT/HCPCS: 20610; 27447; C1776; 76942; 97162; 97530; J0690; J1040; J2001; J2370; J2405

== ENCOUNTER 2021-09-14 13:28 | Outpatient (CLI) | payer MEDICARE, OTHER, SELFPAY ==
--- NOTE | 2021-09-14 11:00 | DI.RAD_ITS ---
Exam(s) XR KNEE LT 1V XR STANDING ALIGNMENT EXAM: XR STANDING ALIGNMENT and XR knee LT 1 V CLINICAL HISTORY: 1ST POST OP L TKA. TECHNIQUE: 2D digital imaging was performed. Five views were obtained. COMPARISON: CR XR STANDING ALIGNMENT from 08/14/2021 CR XR KNEE LT 1V from 09/14/2021 FINDINGS: BONES: No acute fracture is present. No bony destructive lesion is seen. Since the prior examination the patient has undergone a left total knee replacement. The orthopedic hardware is in good position . There is mild soft tissue swelling around the left knee. The hips are well maintained. There are marked degenerative changes of the right knee with joint space narrowing, subchondral sclerosis and periarticular spurring particularly in the medial femoral tibial joint. The ankles are well maintain ed. No significant leg length discrepancy is seen. SOFT TISSUE: Normal. IMPRESSION: Status post left TKR. DATA REPOSITORY: RADIATION DOSE DELIVERED:
== END 2021-09-14 13:29 | disposition home or self-care (01) ==
LOC: DIORS 13:28
PROVIDERS: PCP Nurse Practitioner Family; Referring Provider Nurse Practitioner Family; Visit Provider Physician Assistant Surgical
DX: Z96.652 Presence of left artificial knee joint (principal); Z47.1 Aftercare following joint replacement surgery
CPT/HCPCS: 73560; 77073

== ENCOUNTER → 2021-10-16 14:36 | Outpatient (BNVA) | payer MEDICARE, OTHER, SELFPAY | PROVIDERS: PCP Nurse Practitioner Family; Referring Provider Nurse Practitioner Family; Visit Provider Student in an Organized Health Care Education/Training Program | DX: Z47.1 Aftercare following joint replacement surgery (principal); Z96.652 Presence of left artificial knee joint; M17.11 Unilateral primary osteoarthritis, right knee ==

== ENCOUNTER → 2021-12-14 12:52 | Outpatient (BNVA) | payer MEDICARE, OTHER, SELFPAY | PROVIDERS: PCP Nurse Practitioner Family; Referring Provider Nurse Practitioner Family; Visit Provider Physician Assistant Surgical | DX: Z01.818 Encounter for other preprocedural examination (principal); M17.11 Unilateral primary osteoarthritis, right knee ==

== ENCOUNTER 2021-12-18 03:34 | Outpatient (CLI) | payer MEDICARE, OTHER, SELFPAY ==
[2021-12-18 12:49] LABS: Source Nasal/Nares
[2021-12-18 15:25] LABS: COVID-19 PCR Negative (Negative)
== END 2021-12-18 03:35 | disposition home or self-care (01) ==
LOC: LBO 03:34
PROVIDERS: Visit Provider Student in an Organized Health Care Education/Training Program
DX: Z20.822 Contact with and (suspected) exposure to COVID-19 (principal)
CPT/HCPCS: 36415; 80048; 85027; 87635

== ENCOUNTER 2021-12-18 03:55 | Outpatient (CLI) | payer MEDICARE, OTHER, SELFPAY ==
[2021-12-18 11:09] LABS: HCT 41.1 % (36.0-46.0); HGB 13.5 g/dL (11.2-15.7); MCH 29.5 pg (27.0-33.0); MCHC 32.8 % (32.0-36.0); MCV 90 fL (80-95); MPV 12.1 fL (8.0-11.0); Platelet Count 167 10^3/uL (130-400); RBC 4.57 10^6/uL (3.93-5.22); RDW 13.3 % (11.7-14.6); RDW-SD 43.9 fL; WBC 5.74 10^3/uL (4.4-10.8)
[2021-12-18 11:55] LABS: Anion Gap 9.1 mmol/L (3-11); BUN 15 mg/dL (7-18); CO2 30.9 mmol/L (21.0-32.0); CREATININE 1.1 mg/dL (0.55-1.02); Calcium 9.2 mg/dL (8.5-10.1); Chloride 102 mmol/L (98-107); Estimated GFR 48.42 (mL/min/1.73m2); Glucose 93 mg/dL (74-106); Potassium 3.3 mmol/L (3.5-5.1); Sodium 142 mmol/L (136-145)
== END 2021-12-18 03:56 | disposition home or self-care (01) ==
LOC: LBO 03:55
PROVIDERS: Visit Provider Student in an Organized Health Care Education/Training Program
DX: M17.11 Unilateral primary osteoarthritis, right knee (principal); Z01.818 Encounter for other preprocedural examination
CPT/HCPCS: 36415; 80048; 85027

== ENCOUNTER 2021-12-20 06:58 | Day surgery (SDC) | payer MEDICARE, OTHER, SELFPAY ==
[2021-12-20] VITALS (9 sets, daily range): BP systolic 86–115; BP diastolic 46–71; PULSE 56–65; RESP 13–20; TEMP 36.1–36.6; O2SAT 96–98; BMI 31.0
--- NOTE | 2021-12-20 07:28 | DSE_ITS ---
DS: Diagnosis Discharge Diagnosis (1) Osteoarthritis of right knee: Status: Chronic Discharge Plan Disposition Patient Disposition: HOME Condition: Good Discharge Details Reason For Visit: Right knee DJD Attending Provider: Brendan Yin Primary Care Provider: Nataliya Tellez Home Meds and New Rx's Prescriptions: New celecoxib [Celebrex] 200 mg capsule 200 mg PO BID Qty: 30 0RF aspirin 81 mg tablet,delayed release (DR/EC) 81 mg PO BID 30 Days Qty: 60 0RF acetaminophen 500 mg tablet 1,000 mg PO Q8H PRN Qty: 90 0RF Rx Instructions: Take two tablets up to every 8 hours as needed for pain pantoprazole 40 mg tablet,delayed release (DR/EC) 40 mg PO DAILY 14 Days Qty: 14 0RF docusate sodium [Colace] 100 mg capsule 100 mg PO BID Qty: 30 0RF gabapentin 300 mg capsule 300 mg PO QHS Qty: 14 0RF Rx Instructions: Take one tablet at bedtime Continued alprazolam 0.5 MG tablet,disintegrating 0.5 mg PO HS PRN citalopram [Celexa] 40 MG tablet 40 mg PO DAILY triamterene-hydrochlorothiazid 1 EACH capsule 1 tab-cap PO DAILY levothyroxine 25 MCG tablet 50 mcg PO DAILY rosuvastatin 20 mg tablet 20 mg PO DAILY Discontinued acetaminophen 500 mg tablet 500 mg PO Q6H PRN (Reason: pain) Qty: 60 2RF ibuprofen 200 mg Tablet 600 - 800 mg PO Q6H PRN Discharge Instructions Additional Instructions: Total Knee Discharge Instructions Activity: The most important activity is to walk. You should try to take short walks a few times a day. It is important that when resting you work on keeping the knee straight. Avoid putting a pillow behind the knee as this will encourage flexion. Work on range of motion exercises as provided by Physical Therapy. - Start outpatient physical therapy within 2 weeks. - You should wear the JOE hose on both legs for 2 weeks. You may remove these at night. You may also use any compression sock in place of the JOE hose. - Utilize [employer] to review exercises, see videos on exercises and obtain basic information pertaining to your surgery and your recovery. Dressing: Remove the Ulises wrap by 2 days after your surgery and put on the JOE stocking given to you from the hospital. Keep the surgical dressing (underneath the ULISES wrap) in place for at least one week. After the first week it may be removed and replaced with light gauze and tape or nothing. The wound and dressing may get wet after 3 days but avoid soaking the dressing or otherwise it will need to be changed. Many people prefer covering the dressing with cling wrap (saran wrap) to minimize it from getting soaked. If it gets wet, just pat dry. If it starts to peel off then it will need to be changed. Medications: - You should take Tylenol and anti-inflammatory Celebrex as your primary pain control medications. If the Celebrex is too expensive or not covered, please call the office for another alternative (Advil/Ibuprofen or Naproxen/Aleve) - You have also been prescribed a stomach acid reduction agent Pantoprozole to help reduce stomach acid and reflux. - You have been prescribed Gabapentin to take at night for restlessness and nerve pain. - You will be taking Aspirin 81mg twice a day for DVT prevention unless instructed otherwise. - If you have constipation you should take Colace (which has been prescribed) or Miralax (which is available [id number]). It takes most people 3-4 days to have a bowel movement. Follow-up: 2 weeks If you have any acute concerns or questions, please do not hesitate to contact the office at [phone]. You may contact Dr. Yin with any questions after hours through the hospital at [phone] or on his cell phone at [phone]. Stand Alone Forms: Anesthesia Discharge Inst., Neymar Longoria (U) Referrals: Brendan Yin MD [ [facility] STAFF PHYSICIAN] - Equipment/Supplies: Walker Activity:: Elevate Remove Dressings/Wound Care:: Do Not Remove Shower/Bathe:: Cover Diet:: As Tolerated Discharge Orders Discharge Orders: Discharge Order (Routine); Ordered 12/20/21 Ordered By: Brendan Yin DS: Summary Time Spent with Patient providing and/or coordinating discharge services: Less than 30 minutes Status at Discharge Functional status at discharge: uses cane/walker Overall status at discharge: patient is progressing back to baseline Mental Status: mental status grossly normal Speech and Movement: speech and movement normal Mood: congruent mood Affect: normal affect Exam Psych Mental Status: mental status grossly normal Speech and Movement: speech and movement normal Mood: congruent mood Affect: normal affect DS: Data Vitals/I&O Vitals and I&O: Vital Signs Temperature 97.0 F L 12/20/21 07:05 Pulse 65 12/20/21 07:05 Pulse Rhythm Regular 12/20/21 07:05 Respiratory Depth Deep 12/20/21 07:05 Blood Pressure 115/71 12/20/21 07:05 Pulse Oximetry 96 12/20/21 07:05 Oxygen Delivery Method Room Air 12/20/21 07:05 Oxygen Flow Rate 0 12/20/21 07:05 Pain Level 0 12/20/21 07:05 Intake & Output 12/19/21 12/19/21 12/20/21 11:59 23:59 11:59 Weight 173 lb 15.997 oz 175 lb 0.752 oz PFSH All Active Problems History of total left knee replacement (Acute) Osteoarthritis of right knee (Chronic) Injection 08/30/2021; 12/02/2020 Medical History Depression with anxiety HTN (hypertension) Hypothyroidism Surgical History Arthroplasty of knee R knee scope reported by patient Colonoscopy - MAC (10/01/16) Family History Maternal Aunt Colon cancer Maternal Aunt Colon cancer Social History Smoking/Tobacco Use Status: Former Tobacco Use Quit Date: 04/29/96 Smoking risk assessment performed?: Yes Alcohol Intake: current Alcohol Intake frequency: a few times a week Alcohol type: wine Drug use: Never Substance use type: does not use Do you feel safe at home: Yes Do you feel safe in your relationship?: Yes Additional Social history: lives alone-son will help her out at home post-op
[2021-12-20] MEDS: Lactated Ringers 1,000 ML 80 ML IV (08:02)
[2021-12-20] MEDS: Celecoxib 200 MG CAP 400 MG PO (08:33)
[2021-12-20] MEDS: Gabapentin 300 MG CAP PO (08:33)
[2021-12-20] MEDS: Acetaminophen 500 MG TAB 1000 MG PO (08:34)
--- NOTE | 2021-12-20 09:16 | W.ANESPRE ---
General Info Date of Service Date Performed: 12/20/21 Height: 5 ft 3 in Weight: 79.4 kg Body Mass Index (BMI): 31.0 Surgical Procedure: Operation Date: 12/20/21 09:55 Proposed Procedure Side Surgeon p Knee Total Arthroplasty, Cemented CR Right Brendan Yin MD Meds Allergies and Home Medications Allergies Allergy/AdvReac Type Severity Reaction Status Date / Time No Known Allergies Allergy Verified 12/20/21 07:28 Home Medication Medication Instructions Recorded alprazolam 0.5 mg disintegrating 0.5 mg PO HS PRN 09/17/16 tablet citalopram 40 mg tablet (Celexa) 40 mg PO DAILY 09/17/16 levothyroxine 25 mcg tablet 50 mcg PO DAILY 09/17/16 triamterene 37.5 1 tab-cap PO DAILY 09/17/16 mg-hydrochlorothiazide 25 mg capsule rosuvastatin 20 mg tablet 20 mg PO DAILY 08/28/21 acetaminophen 500 mg tablet 1,000 mg PO Q8H PRN pain #90 tabs 12/20/21 aspirin 81 mg tablet,delayed 81 mg PO BID 30 days #60 tabs 12/20/21 release celecoxib 200 mg capsule (Celebrex) 200 mg PO BID #30 caps 12/20/21 docusate sodium 100 mg capsule 100 mg PO BID #30 caps 12/20/21 (Colace) gabapentin 300 mg capsule 300 mg PO QHS #14 caps 12/20/21 pantoprazole 40 mg tablet,delayed 40 mg PO DAILY 14 days #14 tabs 12/20/21 release Current Visit Medications: Current Medications Generic Name Dose Route Start Last Admin Trade Name Saige PRN Reason Stop Dose Admin Acetaminophen 1,000 mg 12/20/21 06:00 12/20/21 08:34 Acetaminophen 500 Mg Tab PO 12/20/21 18:00 1,000 mg PREOP THEODORE Administration Acetaminophen 1,000 mg 12/20/21 14:00 Acetaminophen 500 Mg Tab PO TID THEODORE Aspirin 81 mg 12/20/21 20:00 Aspirin E.C. 81 Mg Tabec PO BID THEODORE Celecoxib 400 mg 12/20/21 06:00 12/20/21 08:33 Celecoxib 200 Mg Cap PO 12/20/21 18:00 400 mg PREOP THEODORE Administration Celecoxib 200 mg 12/20/21 20:00 Celecoxib 200 Mg Cap PO BID THEODORE Docusate Sodium 100 mg 12/20/21 07:22 Docusate Sodium 100 Mg Cap PO BID PRN PRN Constipation Gabapentin 300 mg 12/20/21 06:00 12/20/21 08:33 Gabapentin 300 Mg Cap PO 12/20/21 18:00 300 mg PREOP THEODORE Administration Gabapentin 300 mg 12/20/21 22:00 Gabapentin 300 Mg Cap PO HS THEODORE Hydromorphone HCl 0.5 mg 12/20/21 07:22 Hydromorphone 2 Mg/Ml Vial IVP Q2H PRN PRN Hydromorphone HCl 0 mg 12/20/21 07:22 Hydromorphone 2 Mg Tab PO Q3H PRN PRN Pain Tranexamic Acid 1,000 mg/ 60 mls @ 360 mls/hr 12/20/21 06:00 Sodium Chloride IVPB 12/20/21 18:00 PREOP THEODORE Ringer's Solution 1,000 mls @ 80 mls/hr 12/20/21 06:00 12/20/21 08:02 IV 12/20/21 23:59 80 mls/hr [facility] Administration Cefazolin Sodium/Dextrose 2 gm in 50 mls @ 100 mls/hr 12/20/21 06:00 Ancef Duplex IVPB 12/20/21 18:00 PREOP THEODORE Cefazolin Sodium/Dextrose 1 gm in 50 mls @ 100 mls/hr 12/20/21 08:00 Ancef Duplex IVPB 12/21/21 00:29 Q8H [facility] IV Miscellaneous Supplies 1 each 12/20/21 06:00 Iv Access IV 12/20/21 23:59 DIRECTED THEODORE Ondansetron HCl 4 mg 12/20/21 07:22 Ondansetron 4 Mg/2 Ml Vial IVP Q6H PRN PRN Nausea Pantoprazole Sodium 40 mg 12/20/21 07:30 Pantoprazole 40 Mg Tabcr PO DAILY@0730 THEODORE Polyethylene Glycol 17 gm 12/20/21 07:22 Polyethylene Glycol 3350 17 Gm Packet PO BID PRN PRN Constipation Sodium Chloride 0 ml 12/20/21 06:00 Normal Saline Flush 10 Ml Syr IV 12/20/21 23:59 PRN PRN Sodium Chloride 0 ml 12/20/21 06:00 Normal Saline 10 Ml Vial IJ 12/20/21 23:59 DIRECTED PRN Sterile Water 0 ml 12/20/21 06:00 Water,Injection,Sterile 10 Ml Vial IJ 12/20/21 23:59 DIRECTED PRN PFSH Active Problems Active Problems: Problem Status Onset Code History of total left knee replacement Z96.652 Osteoarthritis of right knee M17.11 Medical History Medical History Depression with anxiety HTN (hypertension) Hypothyroidism Surgical History Surgical History Arthroplasty of knee R knee scope reported by patient Colonoscopy - MAC (10/01/16) Tobacco Smoking/Tobacco Use Status: Former Tobacco Use Alcohol Alcohol Intake: current Alcohol intake frequency: a few times a week Alcohol type: wine Substance Use Substance use: Never Substance use type: does not use Vital Signs and Lab Results Vital Signs Most Recent Vital Signs in EMR: Most Recent Vital Signs Temp Pulse Resp BP Pulse Ox 36.1 C L 65 18 115/71 96 12/20/21 07:05 12/20/21 07:05 12/20/21 07:05 12/20/21 07:05 12/20/21 07:05 Lab Results Blood Type / Crossmatch: No Data to Display Complete Blood Count: White Blood Count 5.74 10^3/uL (4.4-10.8) 12/18/21 10:58 Red Blood Count 4.57 10^6/uL (3.93-5.22) 12/18/21 10:58 Hemoglobin 13.5 g/dL (11.2-15.7) 12/18/21 10:58 Hematocrit 41.1 % (36.0-46.0) 12/18/21 10:58 Platelet Count 167 10^3/uL (130-400) 12/18/21 10:58 Complete Metabolic Panel: Sodium Level 142 mmol/L (136-145) 12/18/21 10:58 Potassium Level 3.3 mmol/L (3.5-5.1) L 12/18/21 10:58 Chloride Level 102 mmol/L (98-107) 12/18/21 10:58 Carbon Dioxide Level 30.9 mmol/L (21.0-32.0) 12/18/21 10:58 Blood Urea Nitrogen 15 mg/dL (7-18) 12/18/21 10:58 Creatinine 1.1 mg/dL (0.55-1.02) H 12/18/21 10:58 Estimated GFR/1.73 m2 48.42 (mL/min/1.73m2) 12/18/21 10:58 Calcium Level 9.2 mg/dL (8.5-10.1) 12/18/21 10:58 Glucose Level 93 mg/dL (74-106) 12/18/21 10:58 Liver Function Panel: No Data to Display Coagulation Panel: No Data to Display Cardiac Panel: No Data to Display Arterial Blood Gas: No Data to Display Venous Blood Gas: No Data to Display Pancreas Panel: No Data to Display Thyroid Panel: No Data to Display Infectious Disease: Coronavirus (COVID-19)(PCR) Negative (Negative) 12/18/21 11:07 Coronavirus 2019 Source Nasal/Nares 12/18/21 11:07 Blood Cultures: No Data to Display Toxicology Panel: No Data to Display Anesthesia Assessment and Plan Anesthesia History Personal History: No History of Anesthesia Complications Family History: No Family History of Anesthesia Complications Exercise Tolerance Exercise Tolerance: Metabolic Equivalents>4 Cardiac & Pulmonary Exam Cardiac Exam: Normal S1/S2 Heart Sounds Pulmonary Exam: Clear Bilateral Breath Sounds Implantable Cardiac Device Does patient have a Pacemaker or an ICD?: No Airway Exam Known Difficult Airway: No Mallampati Class: 2 Mouth Opening: Narrow (< 3cm) Thyromental Distance: Greater than 3 cm Neck Range of Motion: Full ROM Neck Circumference: Normal Teeth Condition: Normal Dentition ASA Classification ASA Score: ASA 2 Emergency Case?: No NPO Status NPO Status: NPO Clears >2 hours, Solids >8 hours Anesthesia Plan Resuscitation Status: Full Code Anesthesia Technique: Spinal Anesthesia Airway Planned: Natural Airway Pain Management: Surgeon and patient request nerve block Monitors Used: Standard Monitors Preoperative Comments:: 76 yo female for TKA. Sig PMHx: HTN, hypothyroid (on replacement), depression/anxiety, former smoker, occ EtOH, GERD (pantoprazole). denies health history change since last knee. Previous: spinal, phenyl gtt.
[2021-12-20] MEDS: ceFAZolin 2 GM/50 ML BAG IVPB (10:03)
--- NOTE | 2021-12-20 12:47 | W.ANESPOSTOP ---
Postoperative Evaluation Date, Time and Location Date Performed: 12/20/21 Time Performed: 12:47 Patient Location: PACU Vital Signs Most Recent Imported Vital Signs: Most Recent Vital Signs Temp Pulse Resp BP Pulse Ox 36.6 C 57 L 13 103/52 L 96 12/20/21 12:40 12/20/21 12:40 12/20/21 12:40 12/20/21 12:40 12/20/21 12:40 Pain Score Most Recent Pain Score: Most Recent Pain Score Pain Level 0 12/20/21 12:40 Assessment Mental Status: Awake (Alert & Oriented to Patient Baseline) Airway and Respiratory Function: Patent airway with normal (patient baseline) respiratory exam Cardiovascular Function: Hemodynamically Stable Hydration Status: Adequately Hydrated Nausea & Vomiting: No Nausea or Vomiting Pain: Pain is tolerable per patient Peripheral Nerve Block: Regional nerve block not resolved at time of post operative discharge
[2021-12-20] MEDS: HYDROmorphone 2 MG TAB PO (13:40)
--- NOTE | 2021-12-20 13:45 | PT.INIE ---
Date of service: 12/20/21 Time of Service: 13:45 PT Notes Visit Reasons: Right knee DJD Physical Therapy Day Surgery Initial Evaluation Date: 12/20/2021 Referring Doctor: TYREL Sandhu PT Orders: PT CONSULT: S/p Ortho surgery Precautions: WBAT on the right LE with AD. Patient Profile/Admitting Diagnosis: Payal is a 76-year-old female with primary unilateral degenerative joint disease of right knee and is status post right total knee arthroplasty on postoperative day 0. PMHX: Medical History?(Updated 09/14/21 @ 11:18 by Marce Duff) Depression with anxiety HTN (hypertension) Hypothyroidism Surgical History?(Updated 09/14/21 @ 11:07 by Taty Pak RN) Arthroplasty of knee R knee scope reported by patientColonoscopy - MAC (10/01/16) Social History/Home Situation: Lives alone and in a private home with 3 steps to enter with rails on both sides. Son Boo will be with her for 1 week as she recuperates at home. Independent with all aspects of ADLs prior to surgery. Equipment Owned/DME: [facility] Subjective: Agreeable to PT consult. Denies headache, chest pain, and dizziness throughout session. Good mastery of previous exercises from a left TKA back in August 2021. Objective: General Observation: Supine in bed. JAYDEN wraps to right knee. TEDS to left leg. Mental Status: Alert and oriented x4 Pain: 1-2/10 ROM: Right Lower Extremity: Hip flexion WFL. Hip abduction WFL. Knee flexion 0-100 degrees. Ankle dorsiflexion WFL. Ankle plantarflexion WFL. Left Lower Extremity: Hip flexion WFL. Hip abduction WFL. Knee flexion WFL. Ankle dorsiflexion WFL. Ankle plantarflexion WFL. Strength: Right Lower Extremity: Hip flexors 4/5. Hip abductors 4/5. Knee flexors 4/5. Knee extensors 4/5. Ankle dorsiflexors 5/5. Ankle plantarflexors 5/5. Left Lower Extremity:Hip flexors 5/5. Hip abductors 5/5. Knee flexors 5/5. Knee extensors 5/5. Ankle dorsiflexors 5/5. Ankle plantarflexors 5/5. Sensation: Intact as to pain and light pressure in B LE Bed Mobility/Transfers: Supine to sit independent Sit to stand supervision with FWW Stand to sit supervision with FWW Bed to chair stand by assist with FWW Bed to toilet seat supervision with FWW Gait: Tolerated 150 feet of level surface ambulation using front wheeled walker with step to gait pattern requiring only standby assist. Minimal intoeing to bilateral lower extremities noted but patient indicated that she has been walking like that. Minimal trunk lean noted to L with R LE advancement. Report of increased pain. No shortness of breath. No loss of balance. Stairs: Up and down 6 x 4 inch steps and 4 x 6 inch steps while holding onto bilateral rails with step to gait pattern requiring only supervision. Balance: Static Sitting: Normal Dynamic Sitting: Normal Static Standing: Fair Dynamic Standing: Fair Special Tests: Mobility Limitations Standardized Measure [facility]-P[facility] 6 clicks Basic Mobility Inpatient Short Form: Raw Score: 24 CMS Score: 0% deficit Informed Consent/Education: Patient instructed in purpose of PT consult. Education and training on initial set of exercises that can be done at home have been completed with patient with reference to the [employer] james. Assessment: Patient requires the use of a front wheeled walker for all mobility ADL performance to maximize independence and reduce fall risk. Patient presents with clinical signs and symptoms consistent with current/admitting diagnoses that have resulted to mobility limitations, gait instability, generalized weakness, and impairment of motor control as demonstrated by the following impairment level findings: 1. Decreased strength to R knee major muscle groups 2. Impaired standing balance 3. Limitation of joint range of motion in R knee Impairments are contributing to the following functional limitations: 1. Inability to safely ambulate without assistive device 2. Increase completion time for mobility ADL performance 3. Increased fall risk Patient is assessed as a 78924 moderate complexity based on the following: History: 76-year-old female with impairment level findings, functional limitations, and past medical history as indicated above Examination: Demonstrable impairment in strength, balance, and mobility level with underlying impairments and functional limitations as documented above Presentation: Evolving Decision Makin moderate complexity Goals: N/A. PT evaluation and 1-2 treatment sessions only for functional mobility training using recommended AD and for HEP instruction. Plan of Care/Treatment Plan: N/A. PT evaluation and 1-2 treatment session only for functional mobility training using recommended AD and for HEP instruction. DISCHARGE RECOMMENDATIONS: [] Home with no services [] [] Home with services [specify] [X] Home with outpatient PT. Home when medically cleared by orthopedic surgeon. Will benefit from outpatient PT services in order to maximize functional outcomes and facilitate independent community ambulation without an assistive device. [] SNF for continued rehabilitation [] [] [facility] [] [] SNF versus LTC based on ability to participate and progress [] TREATMENT CODE/TIME: 22024 x 26 minutes beginning at 13:45 PM. Thank you for the opportunity to participate in the care of this patient. Melissa Medrano PT, DPT, CLT [facility] [place], [place]
--- NOTE | 2021-12-21 07:07 | ROE_ITS ---
Date of service: 12/20/21 Time of Service: 11:00 Operative Note Operative Note DATE OF PROCEDURE: 12/20/21 PRE-OP DIAGNOSIS: Right Knee Osteoarthritis POST-OP DIAGNOSIS: same PROCEDURE: Right Total Knee Replacement SURGEON: Brendan Yin MANUFACTURING ENGINEER CHIEF: Marce Duff ANESTHESIA TYPE: Spinal Refer to Anesthesia Record ESTIMATED BLOOD LOSS: 250 PATHOLOGY: none sent COMPLICATIONS: None Patient was transported to: PACU Patient's condition: stable Implants: 1. Depuy Attune Cruciate Retaining Femoral Component, Size 6 2. Depuy Attune Rotating Platform Tibial Component, Size 5 3. Depuy Attune 6x8 CR,RP Poly 4. Depuy Attune Patellar Component, Size 38 Indications: I have seen Payal in clinic for symptoms of knee arthritis, confirmed with radiographic findings. She has exhausted nonoperative methods and was having significant limitations in daily function and desired better function and less pain. She previously had a succesful left knee replacement. I discussed the technical details of a knee replacement. I explained the risks of the procedure to include, but not limited to, bleeding, infection, pain, stiffness, fracture, damage to nerves and vessels, damage to muscles and tendons, loosening, need for repeat procedure, blood clot and cardiopulmonary demise. Despite these risks, Paayl elected to proceed. Findings: There was significant signs of arthritis throughout the knee involving all 3 compartments. Procedure Description: Payal was greeted in the preoperative holding area where the correct side was identified and marked. The consent was reviewed with the patient and signed. The history and physical was updated. All questions were answered. Preoperative mediacations were administered: Acetaminophen 1000mg, Celebrex 400mg, and Gabapentin 300mg. An adductor canal block was then administered by the anesthesia team in the PACU. Payal was taken back to the operating room. A spinal anesthestic was then administered. The patient was placed into the supine position on the operating room table. A nonsterile tourniquet was placed high onto the leg but only used for cementing. Posts were placed for positioning during the procedure. All bony prominences were well padded. Prophylactic antibiotics in the form of Cefazolin were administered. 1g of Tranxemic Acid was given intravenously within 30 minutes of incision. The right leg was then prepped with Chloraprep and draped in a standard fashion with impervious stockinette and extremity drape. A second prep with Chloraprep was performed prior to placing Ioband. A timeout to confirm correct identity, side and site, procedure, allergies, anesthesia, and medical concerns was performed. With the knee in some flexion, a midline incision was made overlying the knee. Full thickness skin flaps were raised once the extensor mechanism was encountered. These were raised medially and laterally. Any bleeding was controlled with electrocautery. Once the extensor mechanism was fully exposed, a medial parapatellar arthrotomy was performed in a flexed position. All bleeding from the arthrotomy and the geniculate arteries was coagulated. A medial subperiosteal peel was performed with electrocautery to the midcoronal plane. The fat pad was removed while keeping the patellar tendon protected. The anterior distal femur synovium was removed for later visualization. The ACL and PCL were resected and the anterior horn of the lateral meniscus was transected. The knee was then flexed with the patella everted. Large osteophytes from the tibia were removed. Large osteophytes from the femur were removed. Using a step drill, and based on preoperative templating, the femoral canal was entered. This was done with a step drill without any difficulty. The intramedullary distal femoral cut guide was inserted, set to a 4 degree valgus cut and 8mm cut thickness. The distal femoral cut guide was then held in position and pinned. With the soft tissues protected, the distal cut was performed. This was passed over a few times to ensure a planar cut. I then turned attention to the tibia. The extramedullary guide was placed onto the leg. The distal aspect was slid me dial to adjust for position of center of ankle and stay in line with shaft of the tibia. Approximately 3-5 degrees of posterior slope was kept in the proximal cutting guide. The center of the guide was aligned with the PCL. The stylus was used to assess cut thickness. The medial side, most involved side, was set for a 4mm cut. This was then held in position and pinned into place with 2 additional pins and a cross pin for stability. The medial and lateral collateral ligaments were protected and the cut was performed. With this completed, it was assessed and noted to be of appropriate dimensions. The guide was removed. A spacer block was inserted and the knee was brought into extension. The 6mm spacer block provided full extension, without hyperextension and with stability of both the medial and lateral collateral ligaments was assessed. The pins from the femur and the tibia were then removed. The distal femur was then sized. The anterior stylus was placed onto the lateral ridge of the anterior femur. This indicated a size 6 femur. The external rotation of the guide was adjusted to 3 degrees to match the epicondylar axis, perpendicular to Qasim?s line. The 4-in-1 cutting guide was the placed. The posterior medial femur cut was evaluated and appeared of good thickness. The spacer block was inserted underneath the cutting guide and stability was confirmed in 90 degrees of flexion. An marie wing was used to confirm appropriate position of the anterior cut to avoid notching. This cutting guide was ensured to be flush on the cut surface and then pinned into place with headed pins. While protecting the soft tissues, quad tendon, and collateral ligaments, the anterior and posterior cuts were performed with a saw. The central two pins were removed and the posterior and anterior chamfers were cut next. The notch-cutting guide was placed. This was pinned to lateralize the femoral component as much as possible while keeping it flush on the cut surface. This was then pinned into position. A reciprocating saw was used to make the small notch cut. A trial CR femoral component was then inserted, impacted down to the cut surfaces, and the lug holes were drilled. A provisional trial tibial component was placed and the knee was brought through range of motion. The polyethylene was trialed until there was good flexion and extension with excell ent stability to the medial and lateral collaterals. The patella was tracking without thumbs. The tibial cut surface was fully exposed. The medial and lateral menisci were removed. The tibia was then sized as a 5. The tibia had been previously marked during trialing to correspond to the center of the tibial component to help with rotation. The trial was aligned to this ab, approximately rotated to the medial 1/3rd of the tibial tubercle. The trial was pinned into place. The tibia was prepared with a reamer and a keel punch. The knee was then brought into extension and the patella was measured as 26mm. Using the patellar clamp and cut guide, this was resected to a flat surface with at least 13mm of thickness remaining. The size 38 patella fit the best. This was oriented and then clamped into position. The lugs were drilled. The trial components were removed. The final components, except for the polyethylene were opened on the back table. The periosteal and capsular tissues, especially posteriorly, around the knee were then systematically injected with a periarticular cocktail consisting of 246mg of Ropivacaine, 0.5mg of Epinephrine, 0.08mg of Clonidine, and 30mg of Ketorolac, diluted to 100cc.. The tourniquet was then inflated to 275mmHg. The knee was thoroughly irrigated with a pulse lavage and dried. On the back table, with the implants opened, the cement was mixed. 2 batches of medium viscosity cement were prepared with vacuum assistance. After the cement was ready it was placed on to the back side of the tibial component. A small amount was placed onto the posterior flange of the femur. Cement was manual pressurized and impregnated into the cut surface of the tibia. The tibial component was then inserted into the cut surface and impacted into position. Excess cement was removed and the component was reimpacted. Again, excess cement was removed and our attention was then turned to the femur. The femoral cut surface was once again dried and cement was manually impacted into the cut surface. The femoral component was lined with the lug holes and impacted. Excess cement was removed. It was ensured to be down against the cut surface. The trial polyethylene was then inserted and the leg was brought out into full extension for the duration of the cement curing process, approximately 18min. Cement was lastly manually impacted into the cut surface of the patella and the patellar button was clamped into position and held. During this process attention was turned to the gutters of the knee and for all interfaces for any e xcess cement. While the cement was hardening, the knee was irrigated with Surgiphor Betadine solution. It was allowed to sit in the knee for 3 minutes and then it was thoroughly irrigated with saline. After the cement had finally cured, approximately 18min, the clamp was removed from the patella and the knee was taken through range of motion. A size 8mm polyethylene component provided the best range of motion and stability with less than 2mm gapping with medial and lateral stress and full extension without significant hyperextension. The patella was tracking with a no-thumbs technique. The trial poly was removed and once again the knee was checked for any loose, excess, or errant cement. The poly component was then inserted into position after cleaning and drying the tibial tray. The capsule was then reapproximated with a No. 1 Vicryl at multiple locations. The capsule was finally closed with a No. 2 Stratafix, barbed suture. The tourniquet was then released and the arthrotomy appeared watertight without significant bleeding. The second dosing of 1g TXA was started. Deep tissues were then reapproximated with 0 Vicryl and 2-0 Vicryl. The skin was closed with a running 3-0 Monocryl in a subcuticular fashion. This was reinforced with skin glue. A Mepilex silver dressing was applied along with a [id number] JAYDEN wrap. A CryoCuff was applied. Payal was transferred to the hospital bed without difficulty an suffering no apparent complication. She has a good prognosis. Physical therapy will start today and without restrictions, weight-bearing as tolerated. Aspirin 81mg BID will be used for DVT prophylaxis.
--- NOTE | 2021-12-22 15:00 | W.ANESNERVE ---
Nerve Block Single Injection Procedure Date and Time Date Performed: 12/20/21 Procedure Start: 09:54 Location Where Procedure Performed Procedure Location: Day Surgery Unit Reason Performed: Postoperative Analgesia Requesting Provider: Brendan Yin Timeout Performed Timeout Performed: Yes Monitoring Used ECG, Blood Pressure and SpO2 Sterility Sterility: Hand Hygiene, Surgical Cap, Surgical Mask, Sterile Gloves and Chlorhexidine Sedation Given During Procedure Sedation Given (Indicate Dose Given): No Sedation given Patient Mental Status Patient Mental Status: Awake Nerve Block 1st Nerve Block: Laterality: Right Block Type: Adductor Canal Needle / Catheter Used: 100mm SonoPlex II Local Anesthetic Bolus (Indicate Dose Given): Lidocaine used for local infiltration of skin and Bupivacaine 0.375% Dose:: 10 mL Additives (Indicate Dose Given): None Ultrasound: Sterile probe cover and gel used Ultrasound Image Saved?: Yes Nerve Stimulator: Not Used Paresthesia: None Procedure Tolerated: No Complications Procedure Outcome: Successful Performed By: Satinder Rodriguez
== END 2021-12-20 14:27 | disposition home or self-care (01) ==
PROVIDERS: PCP Family Medicine; Visit Provider Student in an Organized Health Care Education/Training Program
PROC: (CPT 27447; principal; 2021-12-20 09:45)
DX: M17.11 Unilateral primary osteoarthritis, right knee (principal); I10 Essential (primary) hypertension; E03.9 Hypothyroidism, unspecified
CPT/HCPCS: 27447; 76942; 97162; J0690; J1100; J2370; J2405; J2704

== ENCOUNTER 2022-01-04 11:08 | Outpatient (CLI) | payer MEDICARE, OTHER, SELFPAY ==
--- NOTE | 2022-01-04 09:00 | DI.RAD_ITS ---
Exam(s) XR KNEE RT 1V XR STANDING ALIGNMENT EXAM: XR STANDING ALIGNMENT and XR knee RT 1 V CLINICAL HISTORY: 1ST POST OP R TKA. TECHNIQUE: 2D digital imaging was performed. Five images were obtained. COMPARISON: CR XR STANDING ALIGNMENT from 09/14/2021 CR XR KNEE RT 1V from 01/04/2022 FINDINGS: BONES: No acute fracture is present. No bony destructive lesion is seen. There are bilateral total kn ee replacements. The orthopedic hardware appears in good position. The ankles are well maintained. No significant leg length discrepancy is noted. SOFT TISSUE: Normal. IMPRESSION: Bilateral total knee arthroplasties. DATA REPOSITORY: RADIATION DOSE DELIVERED:
== END 2022-01-04 11:09 | disposition home or self-care (01) ==
LOC: DIORS 11:08
PROVIDERS: PCP Family Medicine; Visit Provider Physician Assistant
DX: Z96.651 Presence of right artificial knee joint (principal); Z47.1 Aftercare following joint replacement surgery
CPT/HCPCS: 73560; 77073

== ENCOUNTER → 2022-02-02 09:00 | Outpatient (BNVA) | payer MEDICARE, OTHER, SELFPAY | PROVIDERS: PCP Nurse Practitioner Family; Referring Provider Family Medicine; Visit Provider Student in an Organized Health Care Education/Training Program | DX: Z47.1 Aftercare following joint replacement surgery (principal); Z96.651 Presence of right artificial knee joint ==

== ENCOUNTER → 2022-03-16 09:32 | Outpatient (BNVA) | payer MEDICARE, OTHER, SELFPAY | PROVIDERS: PCP Nurse Practitioner Family; Referring Provider Nurse Practitioner Family; Visit Provider Student in an Organized Health Care Education/Training Program | DX: Z47.1 Aftercare following joint replacement surgery (principal); Z96.651 Presence of right artificial knee joint ==

== ENCOUNTER 2022-03-19 17:48 | Outpatient (REF) | payer MEDICARE, OTHER, SELFPAY | END 2022-03-19 17:49 | disposition home or self-care (01) | LOC: LBN 17:48 | PROVIDERS: PCP Nurse Practitioner Family; Visit Provider Physician Assistant | DX: R35.0 Frequency of micturition (principal); R30.0 Dysuria | CPT/HCPCS: 87086 ==

== ENCOUNTER 2022-04-12 02:53 | Outpatient (CLI) | payer MEDICARE, OTHER, SELFPAY ==
[2022-04-12 12:44] LABS: Estimated GFR 58.39 (mL/min/1.73m2)
[2022-04-12 12:53] LABS: Potassium 2.7 mmol/L (3.5-5.1)
== END 2022-04-12 02:54 | disposition home or self-care (01) ==
LOC: LOS 02:54
PROVIDERS: PCP Nurse Practitioner Family; Visit Provider Nurse Practitioner Family
DX: I10 Essential (primary) hypertension (principal); E78.5 Hyperlipidemia, unspecified
CPT/HCPCS: 36415; 82565; 84132; 84443

== ENCOUNTER 2022-04-18 02:16 | Outpatient (CLI) | payer MEDICARE, OTHER, SELFPAY ==
[2022-04-18 12:49] LABS: Estimated GFR 58.39 (mL/min/1.73m2); Potassium 3.1 mmol/L (3.5-5.1)
== END 2022-04-18 02:17 | disposition home or self-care (01) ==
LOC: LOS 02:16
PROVIDERS: PCP Nurse Practitioner Family; Visit Provider Nurse Practitioner Family
DX: E87.6 Hypokalemia (principal)
CPT/HCPCS: 36415; 82565; 84132

== ENCOUNTER 2022-05-30 04:11 | Outpatient (CLI) | payer MEDICARE, OTHER, SELFPAY ==
[2022-05-30 12:46] LABS: Potassium 3.2 mmol/L (3.5-5.1)
== END 2022-05-30 04:12 | disposition home or self-care (01) ==
LOC: LOS 04:12
PROVIDERS: PCP Nurse Practitioner Family; Visit Provider Nurse Practitioner Family
DX: E87.6 Hypokalemia (principal)
CPT/HCPCS: 36415; 84132

== ENCOUNTER 2022-11-22 10:19 | Outpatient (CLI) | payer MEDICARE, OTHER, SELFPAY ==
--- NOTE | 2022-11-22 10:31 | DI.RAD_ITS ---
Exam(s) XR KNEE RT 2V AP,LAT EXAM: XR KNEE RT 2V AP,LAT CLINICAL HISTORY: YEARLY F/U R TKR. TECHNIQUE: 2D digital imaging was performed. COMPARISON: CR XR STANDING ALIGNMENT from 01/04/2022 CR XR KNEE RT 1V from 01/04/2022 CR XR KNEE LT 2V AP,LAT from 11/22/2022 FINDINGS: Two views. There is stable position alignment of the components of the prosthesis. No fracture or loosening promise dent. IMPRESSION: Satisfactory stable appearance. DATA REPOSITORY: RADIATION DOSE DELIVERED:
--- NOTE | 2022-11-22 10:31 | DI.RAD_ITS ---
Exam(s) XR KNEE LT 2V AP,LAT EXAM: XR KNEE LT 2V AP,LAT CLINICAL HISTORY: YEARLY F/U LEFT TKR. TECHNIQUE: 2D digital imaging was performed. COMPARISON: CR XR KNEE RT 1V from 01/04/2022 FINDINGS: Two views. There is stable position alignment of the components of the knee prosthesis. No fracture or loosenin g evident. IMPRESSION: Stable satisfactory appearance. DATA REPOSITORY: RADIATION DOSE DELIVERED:
== END 2022-11-22 10:20 | disposition home or self-care (01) ==
LOC: DIORS 10:19
PROVIDERS: PCP Nurse Practitioner Family; Referring Provider Nurse Practitioner Family; Visit Provider Student in an Organized Health Care Education/Training Program
DX: Z47.1 Aftercare following joint replacement surgery; Z96.653 Presence of artificial knee joint, bilateral
CPT/HCPCS: 99213; 73560

== ENCOUNTER 2023-06-25 03:27 | Outpatient (CLI) | payer MEDICARE, OTHER, SELFPAY ==
[2023-06-25 12:40] LABS: Calculated LDL 75 mg/dL (<100); Cholesterol 160 mg/dL (<200); Estimated GFR 58.02 (mL/min/1.73m2); HDL Cholesterol 77 mg/dL (40-60); Potassium 3.2 mmol/L (3.5-5.1); Triglyceride 41 mg/dL (<150)
[2023-06-25 13:22] LABS: FREE T4 1.23 ng/dL (0.76-1.46)
== END 2023-06-25 03:28 | disposition home or self-care (01) ==
PROVIDERS: PCP Nurse Practitioner Family; Visit Provider Nurse Practitioner Family
DX: I10 Essential (primary) hypertension (principal); E03.9 Hypothyroidism, unspecified; E78.2 Mixed hyperlipidemia
CPT/HCPCS: 36415; 80061; 82565; 84132; 84439; 84443

== ENCOUNTER 2024-04-03 11:12 | Outpatient (CLI) | payer MEDICARE, OTHER, SELFPAY ==
--- NOTE | 2024-04-03 11:00 | RT.EKG_ITS ---
APPROVED REPORT Exam: Resting ECG Reason for Exam: ANNUAL Patient Location: O HR:61 bpm ECG Measurements Heart Rate 61 AXIS NM 212 P 12 QRSd 121 QRS -38 QT 437 T -27 QTc 441 Conclusion Sinus rhythm...normal P axis, V-rate 50- 99 Borderline prolonged NM interval...NM >212, V-rate 50- 90 IVCD, consider atypical RBBB...QRSd>120mS, terminal axis(90,270) LAFB
== END 2024-04-03 11:13 | disposition home or self-care (01) ==
LOC: DI.CM 11:12
PROVIDERS: PCP Nurse Practitioner Family; Visit Provider Nurse Practitioner Family
DX: R07.9 Chest pain, unspecified (principal)
CPT/HCPCS: 93010

== ENCOUNTER 2024-04-03 11:37 | Outpatient (CLI) | payer MEDICARE, OTHER, SELFPAY ==
[2024-04-03 13:08] LABS: Anion Gap 11.9 mmol/L (3-11); BUN 22 mg/dL (7-18); CO2 26.1 mmol/L (21.0-32.0); CREATININE 1.1 mg/dL (0.55-1.02); Calcium 9.4 mg/dL (8.5-10.1); Calculated LDL 66 mg/dL (<100); Chloride 103 mmol/L (98-107); Cholesterol 161 mg/dL (<200); Estimated GFR 51.43 (mL/min/1.73m2); Glucose 99 mg/dL (74-106); HDL Cholesterol 80 mg/dL (40-60); Potassium 3.6 mmol/L (3.5-5.1); Sodium 141 mmol/L (136-145); Triglyceride 79 mg/dL (<150)
[2024-04-03 13:25] LABS: FREE T4 1.08 ng/dL (0.76-1.46)
== END 2024-04-03 11:38 | disposition home or self-care (01) ==
LOC: LOS 11:37
PROVIDERS: PCP Nurse Practitioner Family; Referring Provider Nurse Practitioner Family; Visit Provider Nurse Practitioner Family
DX: Z13.6 Encounter for screening for cardiovascular disorders (principal); Z13.1 Encounter for screening for diabetes mellitus; E03.9 Hypothyroidism, unspecified
CPT/HCPCS: 36415; 80048; 80061; 84439; 84443

== ENCOUNTER 2024-05-26 02:17 | Outpatient (CLI) | payer MEDICARE, OTHER, SELFPAY ==
--- NOTE | 2024-05-26 07:15 | DI.MAMMO_ITS ---
Exam(s) MAMMO SCREENING EXAM: MAMMO SCREENING CLINICAL HISTORY: screening,Z12.39 TECHNIQUE: Bilateral full field digital CC and MLO mammographic images were obtained with 3D tomosyn thesis and utilizing computer aided detection (CAD). COMPARISON: Available for comparison. FINDINGS: Masses/Architectural Distortion: There are no suspicious mass is seen. Scattered nodular densities a re seen in both breasts. No areas of architectural distortion are seen. Microcalcifications: No suspicious pleomorphic-type are seen. There are stable calcifications seen in both breasts. Skin Thickening/Nipple Retraction: None. IMPRESSION: 1. No significant interval change with no specific features of malignancy noted. 2. Unless there is more urgent need, screening mammography is recommended, as per [employer] guidelines. BI-RADS Category 2 - Benign Findings Breast Density - Category B - Scattered areas of fibroglandular density Breast density category C or D implies that the patient has dense breast tissue. Dense breast tissue is very common and is not abnormal but dense breast tissue can make it harder to find cancer on a ma mmogram. Also, dense breast tissue may increase their breast cancer risk. This information about the result of the mammogram report was provided to the patient to raise their awareness. Use this report when you speak with the patient about their risks for breast cancer, which includes their family hist ory. At that time, you may recommend for more screening tests (Ultrasound or MRI) as they might be us eful based on their risk. A negative radiographic report should not delay biopsy if a dominant or clinically suspicious mass is present. Up to ten percent of cancers are not identified on mammography. A negative report may reinforce clinical impression. Adenosis and dense breasts may obscure an underlying neoplasm. False positive reports average 6 to 10%. Patient will receive a letter notifying them of these results.
== END 2024-05-26 02:37 ==
LOC: DI 02:17
PROVIDERS: PCP Nurse Practitioner Family; Visit Provider Nurse Practitioner Family
DX: Z12.31 Encounter for screening mammogram for malignant neoplasm of breast (principal); R92.323 Mammographic fibroglandular density, bilateral breasts; D24.1 Benign neoplasm of right breast; D24.2 Benign neoplasm of left breast
CPT/HCPCS: 77063; 77067